=== PATIENT | female | born 1990 | race Caucasian/White ===

== ENCOUNTER 2022-08-11 15:16 | Emergency (ER) | payer OTHER, SELFPAY ==
[2022-08-11 15:43] VITALS: BP 110/62; PULSE 91; RESP 18; TEMP 36.8; O2SAT 100
--- NOTE | 2022-08-11 20:12 | PC.NURSE ---
patient walking in and out of waiting room area without difficulty and in no distress.
--- NOTE | 2022-08-11 20:53 | PC.NURSE ---
patient's visitors brought patient full meal, patient eating and drinking in waiting room area without difficulty and in no distress.
--- NOTE | 2022-08-11 22:00 | PC.NURSE ---
pt in waiting room eating and drinking. negative stroke scale.
[2022-08-11 22:37] LABS: Appearance Urine Clear (Clear); Bilirubin Urine Negative (Negative); Blood Urine Negative (Negative); Color Urine Yellow (Yellow); Glucose Urine UA Negative (Negative); Ketones Urine Negative (Negative); Leukocyte Esterase Ur Negative LEU/UL (Negative); Nitrate Urine Negative (Negative); Protein Urine Negative (Negative); Specific Grav Ur 1.025 (1.001-1.035); Urobilinogen Urine 0.2 mg/dL (<2.0); pH Urine 6.5 (5.0-9.0)
[2022-08-11 22:45] LABS: Bacteria Urine Trace /hpf; Mucus Urine Rare /lpf; RBC Urine 0-2 /hpf (0-2); Squamous Epithelial Cell Urine Few /hpf (Few); WBC Urine 0-3 /hpf
[2022-08-11 22:46] LABS: Add Urine Microscopic? NO
[2022-08-12 00:15] VITALS: BP 89/61; PULSE 77; RESP 12; O2SAT 100
[2022-08-12 00:18] VITALS: PULSE 76; RESP 18; O2SAT 99
[2022-08-12 01:05] VITALS: BP 94/46; PULSE 72; RESP 16; O2SAT 100
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
--- NOTE | 2022-08-12 02:50 | PC.NURSE ---
Pt refused medication administration, stating I dont want any medication, I want a cat scan. EDP notified.
[2022-08-12 03:19] LABS: Amphetamine Screen Urine Negative (Negative); Barbiturate Screen Urine Negative (Negative); Benzodiazepines Screen Urine Negative (Negative); Cannabinoid Screen Urine Negative (Negative); Cocaine Screen Urine Negative (Negative); Methadone Screen Urine Negative (Negative); Opiate Screen Urine Negative (Negative); Phencyclidine Screen Urine Negative (Negative)
== END 2022-08-12 03:14 | disposition home or self-care (01) ==
PROVIDERS: Emergency Provider Emergency Medicine
DX: R25.2 Cramp and spasm (principal)
CPT/HCPCS: 80307; 81003; 81025; 99283